=== PATIENT | female | born 1945 | race African-American/Black ===

== ENCOUNTER 2019-02-23 07:18 | Day surgery (SDC) | payer BC ==
[2019-02-23] VITALS (9 sets, daily range): BP systolic 120–149; BP diastolic 60–80
[~2019-02-23] VITALS: Ht 157.5 cm; Wt 68.0 kg
--- NOTE | 2019-02-23 07:26 | Pre-Procedure Note/Attestation ---
Pre-Procedure Note/Attestation Complete Prior to Procedure Planned Procedure: not applicable Procedure Narrative: High resolution anoscopy with biopsies Indications for Procedure Pre-Operative Diagnosis: rectal mass Attestation I attest that I discussed the nature of the procedure; its benefits; risks and complications; and alternatives (and the risks and benefits of such alternatives ), prior to the procedure, with the patient (or the patient's legal loss prevention representative). I attest that, if there was a reasonable possibility of needing a blood transfusion, the patient (or the patient's legal loss prevention representative) was given the [facility] standardized written summary, pursuant to the [place]ty [place] Blood Safety Act ([place] Health and Safety Code # 1645, as amended). I attest that I re-evaluated the patient just prior to the surgery and that there has been no change in the patient's H&P, except as documented below: Ciara Howard MD Feb 23, 2019 07:26
[2019-02-23] MEDS ORDERED: VITAMIN D400 INTLU ORAL (07:58)
[2019-02-23] MEDS ORDERED: ASPIR 8181 MG ORAL (07:58)
[2019-02-23] MEDS ORDERED: BENICAR HCT 401 EAC1 ORAL (07:58)
[2019-02-23] MEDS ORDERED: CARDIZEM CD240 MG ORAL (07:58)
[2019-02-23] MEDS ORDERED: ATORVASTATIN CA20 MG ORAL (07:58)
[2019-02-23] MEDS ORDERED: BUPRENORPHINE HC8 MG SL (07:58)
[2019-02-23] MEDS ORDERED: fentaNYL 100 mcg/2 mL IV ONE (08:13)
[2019-02-23] MEDS ORDERED: Midazolam 2mg/2ml Inj ONE ×2 (08:13→09:43)
[2019-02-23] MEDS ORDERED: Acetic Acid 3% Solution 15ml TOPIC ONE (08:15)
[2019-02-23] MEDS ORDERED: Ropivacaine 5mg/ml Vial 30ml INJ ONE (08:19)
[2019-02-23] MEDS ORDERED: EPINEPHrine 1mg/1ml Amp ONE (08:19)
[2019-02-23] MEDS ORDERED: Dexamethasone 4mg/ml vial ONE (08:19)
[2019-02-23] MEDS ORDERED: Bupivacaine 0.25% Inj 30ml INJ ONE (08:19)
[2019-02-23] MEDS ORDERED: Propofol 200mg/20ml IV ONE (08:20)
[2019-02-23] MEDS ORDERED: Lidocaine 1% MPF 10mg/ml 5ml ONE (08:20)
[2019-02-23] MEDS ORDERED: cefOXitin 1gm Inj ONE (08:25)
[2019-02-23] MEDS ORDERED: Sterile Water Irrig 1000ml IRRIG ONE (08:30)
[2019-02-23] MEDS ORDERED: LR 1000ml ONE (08:30)
[2019-02-23] MEDS ORDERED: NS Irrig 1000ml ONE (08:30)
[2019-02-23] MEDS ORDERED: NS Irrig 1000ml IRRIG ONE (08:43)
[2019-02-23] MEDS ORDERED: LR 1000ml 1,000 ML IVLG SCH (09:10)
--- NOTE | 2019-02-23 09:10 | Anethesia Preoperative Eval ---
Anesthesia Pre-op PMH/ROS General Date of Evaluation: Feb 23, 2019 Time of Evaluation: 08:32 Anesthesiologist: Elo ASA Score: ASA 3 Mallampati Score Class I : Soft palate, uvula, fauces, pillars visible Class II: Soft palate, uvula, fauces visible Class III: Soft palate, base of uvula visible Class IV: Only hard plate visible Mallampati Classification: Class II Surgeon: Jeannette Diagnosis: Anal condilomas Surgical Procedure: Excision of anal condilomas Anesthesia History: none Family History: no anesthesia problems Allergies: Coded Allergies: No Known Allergies (Unverified , 02/23/19) Medications: see eMAR Patient NPO?: Yes Past Medical History Cardiovascular: Reports: HTN; Denies: CAD, [place], valve dz, arrhythmia, other Pulmonary: Denies: asthma, COPD, WILLIAM, other Gastrointestinal/Genitourinary: Reports: GERD, CRI; Denies: ESRD, other Neurologic/Psychiatric: Reports: depression/anxiety, other - chronic pain; Denies: dementia, CVA, TIA Endocrine: Denies: DM, hypothyroidism, steroids, other HEENT: Denies: cataract (L), cataract (R), glaucoma, [place] (L), [place] (R), other Hematology/Immune: Reports: anemia - mild; Denies: DVT, bleeding disorder, other Musculoskeletal/Integumentary: Reports: DJD; Denies: OA, RA, DDD, edema, other PMH Narrative: as above PSxH Narrative: Hysterectomy, colonoscopies Anesthesia Pre-op Phys. Exam Physician Exam Last Vital Signs Date Time Temp Pulse Resp B/P (MAP) Pulse Ox O2 Delivery O2 Flow Rate FiO2 02/23/19 07:44 97.3 81 18 149/80 98 Room Air Constitutional: NAD Neurologic: CN 2-12 intact Cardiovascular: no M/R/G Respiratory: CTA Gastrointestinal: S/NT/ND Airway Exam Mallampati Score: Class II MO: limited Neck: stiff ROM: limited Teeth: missing Dentures: no upper, no lower Anesthesia Pre-op A/P Labs see chart Studies Pre-op Studies: EKG - SR Risk Assessment & Plan Assessment: ASA 3 Plan: MAC Status Change Before Surgery: No Pre-Antibiotics Drug: Cefoxitin 1gr. Given Within 1 Hr of Incision: Yes Time Given: 08:55 Diomedes Gasca MD Feb 23, 2019 09:10
[2019-02-23] MEDS ORDERED: DiphenhydrAMINE 50mg/ml Inj IVP PRN (09:15)
[2019-02-23] MEDS ORDERED: Hydromorphone 0.5mg/0.5ml inj IVP PRN (09:15)
--- NOTE | 2019-02-23 09:33 | Brief Operative Note ---
Immediate Post Operative Note Operative Note Pre-op Diagnosis: rectal mass Procedure: High-resolution anoscopy with biopsies Post-op Diagnosis: anorectal mass Post-op Diagnosis: same as pre-op Findings: consistent w/pre-op dx studies Surgeon: Ciara Howard MD Anesthesiologist: Diomedes King MD Anesthesia: moderate sedation Specimen: yes Complications: none Condition: stable Fluids: see anesthesia record Estimated Blood Loss: minimal Drains: none Packing: [email or web address] Implant(s) used?: No Ciara Howard MD Feb 23, 2019 09:33
--- NOTE | 2019-02-23 09:40 | Immediate Post-Op Evaluation ---
Immediate Post-Op Evalulation Immediate Post-Op Evalulation Procedure: Excision of anal condilomas Date of Evaluation: Feb 23, 2019 Time of Evaluation: 09:38 IV Fluids: 600 Blood Products: none Estimated Blood Loss: 50 Urinary Output: none Blood Pressure Systolic: 133 Blood Pressure Diastolic: 67 Pulse Rate: 82 Respiratory Rate: 22 O2 Sat by Pulse Oximetry: 99 Temperature (Fahrenheit): 97.4 Pain Score (1-10): 1 Nausea: No Vomiting: No Complications postoperative delirium, restless agitated, confused Patient Status: reacts, patent, none Hydration Status: adequate Diomedes Gasca MD Feb 23, 2019 09:40
[2019-02-23] MEDS ORDERED: Midazolam 2mg/2ml Inj IVP ONE ×2 (10:15→10:30)
--- NOTE | 2019-02-23 11:04 | 48 Hour Post Anesthesia Eval ---
Post Anesthesia Evaluation Procedure: Excision of anal condilomas Date of Evaluation: Feb 23, 2019 Time of Evaluation: 11:01 Blood Pressure Systolic: 116 0: 77 Pulse Rate: 68 Respiratory Rate: 20 Temperature (Fahrenheit): 97.5 O2 Sat by Pulse Oximetry: 98 Airway: patent Nausea: No Vomiting: No Pain Intensity: 2 Hydration Status: adequate Cardiopulmonary Status: stable Mental Status/LOC: patient returned to baseline Follow-up Care/Observations: n/a Post-Anesthesia Complications: patient calms down and goes to sleep after 2-nd dose of i/v midazolam wakes after about 45' quiet follows commands alert oriented ready to be discharged. Follow-up care needed: ready to discharge Diomedes Gasca MD Feb 23, 2019 11:04
--- NOTE | 2019-02-23 19:00 | Operative Note - Dictated ---
DATE OF OPERATION: 02/23/2019 PREOPERATIVE DIAGNOSIS: Anorectal mass. POSTOPERATIVE DIAGNOSIS: Anorectal mass. PROCEDURE: High-resolution anoscopy with biopsies. SURGEON: Ciara Howard M.D. ANESTHESIOLOGIST: Diomedes Gasca M.D. ANESTHESIA: Propofol sedation with local anesthetic. INDICATION FOR PROCEDURE: The patient is a 73-year-old female who was sent to my office by her reinforcing bar setter, Dr. Donta Goetz, for colorectal surgical evaluation of anorectal lesion. The patient had a colonoscopy done by Dr. 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 The patient had a previous rectal tubulovillous adenoma removed in 2013 also at another hospital. The patient was seen by me in the office on 01/21/2019, complaining of bleeding for the past 5 years and weight loss of 5 pounds in the last year. She was found to have a circumferential friable lesion in the anal canal extending outside of the anal canal into the perianal region and the right lateral region. In light of the patient's findings, it was determined at this time to proceed with high-resolution anoscopy with biopsies. DESCRIPTION OF PROCEDURE: Upon consent of the patient, the patient was brought to the operating room and placed in the prone negar-knife position on the operating table. Once adequate sedation had been established with propofol drip, the patient's buttocks were prepped and draped in usual surgical fashion. A 26 mL of 0.5% ropivacaine with epinephrine mixed with 6 mg of dexamethasone was used as a perianal and pudendal block. A Hill-Comer retractor was placed in the anal canal. There was noted to be a friable lesion extending from the anal verge up to the dentate line. The lesion was friable. In the right lateral perianal region, the lesion extended and passed the anal verge into the perianal skin. From the dentate line to the perianal skin measured 3 cm in length. At the right lateral region, the area was firm as well as in the right anterior region. These were excised and sent off the field for specimens. Multiple biopsies were taken of the anorectal lesion and pathology was consulted to rule out carcinoma. The anal canal was then stained with 2% acetic acid as well. Electrofulguration was then performed to remove any remaining friable areas. The anal canal was then irrigated and hemostasis was confirmed. Surgicel was used to pack the area. Sterile dry dressing was used as an outer dressing. Sponge, needle, and instrument counts were correct at the end of the case. The patient was awakened from anesthesia and brought to postanesthesia recovery in stable condition. ESTIMATED BLOOD LOSS: 5 mL. DRAINS: None. SPECIMEN: Anal biopsies. COMPLICATION: None. Ciara Howard M.D. DR: SP JOB#: [id number] CC: Star Bowie M.D.
[2019-02-24] MEDS ORDERED: Midazolam 2mg/2ml Inj IVP ONE (09:00)
== END 2019-02-23 12:00 | disposition home or self-care (01) ==
LOC: SUR 07:18
DX: C21.0 Malignant neoplasm of anus, unspecified (principal); I12.9 Hypertensive chronic kidney disease with stage 1 through stage 4 chronic kidney disease, or unspecified chronic kidney disease; N18.9 Chronic kidney disease, unspecified; K21.9 Gastro-esophageal reflux disease without esophagitis; F32.9 Major depressive disorder, single episode, unspecified; F31.9 Bipolar disorder, unspecified; G89.29 Other chronic pain; M19.90 Unspecified osteoarthritis, unspecified site; Z90.710 Acquired absence of both cervix and uterus
CPT/HCPCS: 46607; J0171; J0694; J1100; J2250; J2704; J2795; J3010; 94003; 94150

== ENCOUNTER 2019-10-21 12:03 | Inpatient (IN) | payer BC, MEDICARE ==
[~2019-10-21] VITALS: Ht 157.5 cm; Wt 61.2 kg
[~2019-10-21 12:03] MED LIST: ASPIR 8181 MG ORAL; ATORVASTATIN CA20 MG ORAL; BENICAR HCT 401 EAC1 ORAL; BUPRENORPHINE HC8 MG SL; CARDIZEM CD240 MG ORAL; VITAMIN D400 INTLU ORAL
[2019-10-21 12:20] VITALS: BP 180/80
--- NOTE | 2019-10-21 12:20 | NUR ---
ED Nurse Note: pt walked in to ED by using cane with family member due to both hip pain that radiated to both lower legs since yesterday. no recent injury. per pt, she has sciatica. ambulatory with steady gait using cane. AAO x4. skin warm to touch. no open wound noted. respirations even and non-labored noted. will wait for the further order.
[2019-10-21] MEDS ORDERED: Ketorolac 30mg Inj IM ONE (12:45)
[2019-10-21] MEDS ORDERED: Ketorolac 30mg Inj ONE (13:00)
--- NOTE | 2019-10-21 13:36 | NUR ---
ED Nurse Note: US tech at the bed side
[2019-10-21 14:00] VITALS: BP 190/99
[2019-10-21] MEDS ORDERED: Morphine Sulfate 2mg/ml Inj(IV/IM USE ONLY) IVP ONE ×2 (14:30→18:30)
[2019-10-21 15:00] VITALS: BP 150/99
[2019-10-21] MEDS ORDERED: Morphine Sulfate 4mg/ml Inj (IV USE ONLY) ONE (15:13)
[2019-10-21] MEDS ORDERED: Morphine Sulfate 2mg/ml Inj(IV/IM USE ONLY) ONE ×2 (15:16→18:43)
[2019-10-21 15:20] LABS: BASOPHILS % (AUTO) 0.6 % (0.0-2.0); EOSINOPHILS % (AUTO) 0.5 % (0.0-3.0); HEMATOCRIT 30.6 % (37.0-47.0); HEMOGLOBIN 10.2 G/DL (12.0-16.0); MEAN CORPUSCULAR VOLUME 86 FL (80-99); MONOCYTES % (AUTO) 9.9 % (1.0-10.0); NEUTROPHILS % (AUTO) 64.1 % (45.0-75.0); PLATELET COUNT 195 K/UL (150-450); RED BLOOD COUNT 3.55 M/UL (4.20-5.40); RED CELL DISTRIBUTION WIDTH 10.1 % (11.6-14.8); WHITE BLOOD COUNT 3.7 K/UL (4.8-10.8)
[2019-10-21 15:43] LABS: ANION GAP 7 mmol/L (5-15); BLOOD UREA NITROGEN 20 mg/dL (7-18); CALCIUM 8.8 MG/DL (8.5-10.1); CARBON DIOXIDE 33 MMOL/L (21-32); CHLORIDE 102 MMOL/L (98-107); CREATININE 0.9 MG/DL (0.55-1.30); POTASSIUM 3.8 MMOL/L (3.5-5.1); SODIUM 142 MMOL/L (136-145)
[2019-10-21] MEDS ORDERED: Enoxaparin 60mg Inj SUBQ SCH (15:45)
[2019-10-21] MEDS ORDERED: Enoxaparin 80mg Inj SUBQ SCH (15:45)
[2019-10-21] MEDS ORDERED: Hyzaar 50-12.5mg tab ORAL ONE ×2 (15:45→16:22)
[2019-10-21 15:48] LABS: ALANINE AMINOTRANSFERASE 20 U/L (12-78); ALBUMIN 3.5 G/DL (3.4-5.0); ALBUMIN/GLOBULIN RATIO 0.8 (1.0-2.7); ALKALINE PHOSPHATASE 61 U/L (46-116); ASPARTATE AMINO TRANSFERASE 19 U/L (15-37); BILIRUBIN,TOTAL 0.4 MG/DL (0.2-1.0)
[2019-10-21] MEDS ORDERED: Enoxaparin 60mg Inj SUBQ ONE ×2 (15:56→16:00)
--- NOTE | 2019-10-21 16:29 | Emergency Room Report ---
History of Present Illness General Chief Complaint: Back Pain-No Injury Source: Patient Present Illness HPI 74-year-old female with history of chronic sciatic pain in the left side here complaining of worsening pain x1 week as well as left lower leg swelling x3 days. She reports that she is usually immobile due to hip pain, denies history of tobacco smoke, cancer, recent travel, recent surgery. Reports that she has history of hypertension and has not taken blood pressure medication today. Denies chest pain, shortness of breath, palpitation, headache and dizziness at this time. Patient is rating her pain 10 out of 10 with radiation to left lower extremity denying tingling and numbness at this time. No calf tenderness is noted upon palpation patient has good arterial pulses on both lower extremities Allergies: Coded Allergies: No Known Allergies (Unverified , 02/23/19) Patient History Past Medical History: see triage record Past Surgical History: unable to obtain Pertinent Family History: none Now: No Immunizations: UTD Reviewed Nursing Documentation: PMH: Agreed; PSxH: Agreed Nursing Documentation-PMH Hx Cardiac Problems: Yes Hx Hypertension: Yes Hx Cancer: No Hx Gastrointestinal Problems: No Hx Neurological Problems: No Review of Systems All Other Systems: negative except mentioned in HPI Physical Exam Vital Signs Date Time Temp Pulse Resp B/P (MAP) Pulse Ox O2 Delivery O2 Flow Rate FiO2 10/21/19 12:10 98.1 88 19 180/80 (113) 97 Room Air Sp02 EP Interpretation: reviewed, abnormal - high bp General Appearance: no apparent distress, alert, GCS 15, non-toxic Head: normocephalic, atraumatic Eyes: bilateral eye normal inspection, bilateral eye PERRL ENT: hearing grossly normal, normal pharynx, no angioedema, normal voice Neck: full range of motion, supple/symm/no masses Respiratory: chest non-tender, lungs clear, normal breath sounds, no rhonchi, no wheezing, speaking full sentences Cardiovascular #1: regular rate, rhythm, no edema, no murmur, normal capillary refill Cardiovascular #2: 2+ dorsalis pedis (R), 2+ dorsalis pedis (L) Gastrointestinal: normal bowel sounds, non tender, soft, non-distended, no guarding, no rebound Rectal: deferred Genitourinary: no CVA tenderness Musculoskeletal: back normal, normal range of motion, no calf tenderness, gait/ station normal, non-tender, swelling - left calf Neurologic: alert, motor strength/tone normal, oriented x3, sensory intact, responsive, speech normal Psychiatric: judgement/insight normal, memory normal, mood/affect normal, no suicidal/homicidal ideation Skin: no rash Lymphatic: no adenopathy Medical Decision Making PA Attestation Diagnosis and treatment plans were reviewed and discussed with my supervising physician Dr. Cotton Diagnostic Impression: Primary Impression: DVT (deep venous thrombosis) ER Course 74-year-old female with history of chronic sciatic pain in the left side here complaining of worsening pain x1 week as well as left lower leg swelling x3 days. She reports that she is usually immobile due to hip pain, denies history of tobacco smoke, cancer, recent travel, recent surgery. Reports that she has history of hypertension and has not taken blood pressure medication today. Denies chest pain, shortness of breath, palpitation, headache and dizziness at this time. Patient is rating her pain 10 out of 10 with radiation to left lower extremity denying tingling and numbness at this time. No calf tenderness is noted upon palpation patient has good arterial pulses on both lower extremities Ddx considered but are not limited to : Cellulitis, DVT, PE, sciatic pain Vital signs: are WNL, pt. is afebrile H&PE are most consistent with: DVT left lower extremity ORDERS: CBC, CMP, UA, coagulation studies, ED INTERVENTIONS: Losartan hydrochlorothiazide, Lovenox, morphine, Zofran Patient was admited with diagnosis of DVT to Dr. Fabian under supervision of : Yury pt stable at time of admission EKG Diagnostic Results Rate: tachycardiac ST Segments: no acute changes Other Impression no acute st changes CT/MRI/US Diagnostic Results CT/MRI/US Diagnostic Results : Imaging Test Ordered: venous duplex LLE Impression DVT Last Vital Signs Date Time Temp Pulse Resp B/P (MAP) Pulse Ox O2 Delivery O2 Flow Rate FiO2 10/21/19 16:23 178/81 10/21/19 12:20 98.1 88 19 97 Room Air Disposition: ADMITTED INPATIENT Condition: Stable Referrals: NON PHYSICIAN (PCP) Vonda Bonilla Oct 21, 2019 16:29
[2019-10-21 16:30] VITALS: BP 178/81
--- NOTE | 2019-10-21 17:25 | History and Physical ---
History of Present Illness General Date patient seen: Oct 21, 2019 Reason for Hospitalization: Back Pain Present Illness HPI 74-year-old female, poor historian, with history of chronic sciatica presented to the ER c/p worsening left back pain radiating to hip, back of left leg and lower down for 1 week. She noticed left lower extremity swelling 3 days ago. She sits around most of the day due to back and hip pain. Says her pcp Dr. Carey did not get any imagining of her back and sent her to PT. Reports PT told her to go to the hospital. She denies active tobacco use, etoh or illicit drug use. No recent travel or surgery. Works as an senior court office assistant. Last colonoscopy August last year per patient it was normal. Denies recent weight loss, chest pain, shortness of breath, palpitation, headache and dizziness, or loc. Her back pain is10 out of 10 with radiation to left lower extremity, no weakness, or loss of sensation. During exam patient got up from stretcher, shaking both legs constantly to relieve pain. she was instructed to lay down. asking for narcotics. Denied any calf pain. patient denies any bowel or bladder incontinence. PMH: HTN, HLD PSH: per chart, excision of anal condyloma Social history: denies toxic hobbits, works as an office manger Family history: Denies hx of cancer Allergies: Coded Allergies: No Known Allergies (Unverified , 02/23/19) Medication History Scheduled Aspirin* (Aspir 81*), 81 MG ORAL DAILY, (Reported) Atorvastatin Calcium* (Atorvastatin Calcium*), 20 MG ORAL BEDTIME, (Reported) Atorvastatin Calcium* (Atorvastatin Calcium*), 20 MG ORAL BEDTIME, (Reported) Buprenorphine Hcl (Buprenorphine Hcl), 8 MG SL BID, (Reported) Diltiazem Hcl* (Cardizem Cd*), 360 MG ORAL DAILY, (Reported) Fluticasone Propionate (Fluticasone Propionate), 1 APPLIC TOPIC TWICE A DAY, ( Reported) Gabapentin* (Gabapentin*), 300 MG ORAL BEDTIME, (Reported) Olmesartan/Hydrochlorothiazide 40-25MG (Benicar Hct 40-25 Mg Tablet), 1 TAB ORAL DAILY, (Reported) Olmesartan/Hydrochlorothiazide 40-25MG (Benicar Hct 40-25 Mg Tablet), 1 TAB ORAL DAILY, (Reported) Vitamin D (Vitamin D3), 5,000 UNITS ORAL DAILY, (Reported) Discontinued Medications Aspirin* (Aspir 81*), 81 MG ORAL DAILY, (Reported) Discontinued Reason: Therapy completed Buprenorphine Hcl (Buprenorphine Hcl), 8 MG SL DAILY, (Reported) Discontinued Reason: Therapy completed Diltiazem Hcl* (Cardizem Cd*), 360 MG ORAL DAILY, (Reported) Discontinued Reason: Therapy completed Patient History Healthcare decision maker Resuscitation status Advanced Directive on File Review of Systems Constitutional: Reports: see HPI Eye: Denies: no symptoms, see HPI, eye pain, blurred vision, tearing, double vision, nose pain, nose congestion, acuity changes, discharge, other ENT: Denies: no symptoms, see HPI, ear pain, ear discharge, nose pain, nose congestion, throat pain, throat swelling, mouth pain, hearing loss, nasal discharge, other Respiratory: Denies: no symptoms, see HPI, cough, orthopnea, shortness of breath, stridor, wheezing, [place]AR[place], sputum, other Cardiovascular: Denies: no symptoms, see HPI, chest pain, edema, palpitations, syncope, PND, other Gastrointestinal: Denies: no symptoms, see HPI, abdominal pain, constipation, diarrhea, nausea, vomiting, melena, hematemesis, other Genitourinary: Denies: no symptoms, see HPI, discharge, dysuria, frequency, hematuria, pain, retention, incontinence, urgency, vag bleed/dc, other Musculoskeletal: Denies: no symptoms, see HPI, back pain, gout, joint pain, joint swelling, muscle pain, muscle stiffness, other Skin: Denies: no symptoms, see HPI, rash, change in color, change in hair/nails , dryness, lesions, other Psychiatric: Denies: no symptoms, see HPI, prior hx, anxiety, depressed feelings, emotional problems, SI, HI, hallucinations, other Neurological: Denies: no symptoms, see HPI, headache, numbness, paresthesia, seizure, tingling, tremors, focal weakness, syncope, dizziness, other Endocrine: Denies: no symptoms, see HPI, excessive sweating, flushing, intolerance to temperature, increased thirst, increased urine, unexplained weight loss, other Hematologic/Lymphatic: Denies: no symptoms, see HPI, anemia, blood clots, easy bleeding, easy bruising, swollen glands, diathesis, other Physical Exam General Appearance: WD/WN, no apparent distress, alert Lines, tubes and drains: peripheral HEENT: normocephalic, atraumatic, anicteric, mucous membranes moist, PERRL, EOMI Neck: non-tender, supple Respiratory/Chest: chest wall non-tender, lungs clear, normal breath sounds, no respiratory distress, no accessory muscle use Breasts: other Cardiovascular/Chest: normal peripheral pulses, normal rate, regular rhythm Abdomen: normal bowel sounds, non tender, soft, no organomegaly Genitourinary/Rectal: other - refused rectal exam Extremities: normal range of motion, non-tender, other - left lower extremity edema Skin Exam: normal pigmentation, warm/dry 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, no motor/sensory deficits, alert, oriented x 3 Musculoskeletal: normal muscle bulk Last 24 Hour Vital Signs Date Time Temp Pulse Resp B/P (MAP) Pulse Ox O2 Delivery O2 Flow Rate FiO2 10/21/19 16:23 178/81 10/21/19 12:20 98.1 88 19 180/80 97 Room Air 10/21/19 12:10 98.1 88 180/80 (113) 97 Room Air Laboratory Tests Test 10/21/19 15:00 White Blood Count 3.7 K/UL (4.8-10.8) L Red Blood Count 3.55 M/UL (4.20-5.40) L Hemoglobin 10.2 G/DL (12.0-16.0) L Hematocrit 30.6 % (37.0-47.0) L Mean Corpuscular Volume 86 FL (80-99) Mean Corpuscular Hemoglobin 28.8 PG (27.0-31.0) Mean Corpuscular Hemoglobin Concent 33.4 G/DL (32.0-36.0) Red Cell Distribution Width 10.1 % (11.6-14.8) L Platelet Count 195 K/UL (150-450) Mean Platelet Volume 4.7 FL (6.5-10.1) L Neutrophils (%) (Auto) 64.1 % (45.0-75.0) Lymphocytes (%) (Auto) 25.0 % (20.0-45.0) Monocytes (%) (Auto) 9.9 % (1.0-10.0) Eosinophils (%) (Auto) 0.5 % (0.0-3.0) Basophils (%) (Auto) 0.6 % (0.0-2.0) Prothrombin Time 10.4 SEC (9.30-11.50) Prothromb Time International Ratio 1.0 (0.9-1.1) Activated Partial Thromboplast Time 33 SEC (23-33) D-Dimer 4.08 mg/L FEU (0.00-0.49) H Sodium Level 142 MMOL/L (136-145) Potassium Level 3.8 MMOL/L (3.5-5.1) Chloride Level 102 MMOL/L (98-107) Carbon Dioxide Level 33 MMOL/L (21-32) H Anion Gap 7 mmol/L (5-15) Blood Urea Nitrogen 20 mg/dL (7-18) H Creatinine 0.9 MG/DL (0.55-1.30) Estimat Glomerular Filtration Rate mL/min (>60) Glucose Level 97 MG/DL (74-106) Calcium Level 8.8 MG/DL (8.5-10.1) Total Bilirubin 0.4 MG/DL (0.2-1.0) Aspartate Amino Transf (AST/SGOT) 19 U/L (15-37) Alanine Aminotransferase (ALT/SGPT) 20 U/L (12-78) Alkaline Phosphatase 61 U/L (46-116) Troponin I 0.008 ng/mL (0.000-0.056) Pro-B-Type Natriuretic Peptide 468 pg/mL (0-125) H Total Protein 7.9 G/DL (6.4-8.2) Albumin 3.5 G/DL (3.4-5.0) Globulin 4.4 g/dL Albumin/Globulin Ratio 0.8 (1.0-2.7) L Height (Feet): 5 Height (Inches): 2.00 Weight (Pounds): 135 Objective Narrative EKG: sinus tach, no st-t- changes Assessment/Plan Problem List: (1) HTN (hypertension) ICD Codes: I10 - Essential (primary) hypertension SNOMED: 74636316 (2) DVT (deep venous thrombosis) ICD Codes: I82.409 - Acute embolism and thrombosis of unspecified deep veins of unspecified lower extremity SNOMED: 257209186 (3) Intractable back pain ICD Codes: M54.9 - Dorsalgia, unspecified SNOMED: 420752499 (4) Normocytic anemia ICD Codes: D64.9 - Anemia, unspecified SNOMED: 798622709 Status: stable Assessment/Plan: 74 year old female with immobility due to back pain, being admitted for left lower extremity DVT, no sob, hypotension, chest pain, hypoxia to suggest PE. -med surg -full dose lovenox 1mg/kg BID -Elevated BNP- heck 2D echocardiogram -Normocytic anemia and neutropenia: anemia work up, stool for occult blood, HIV testing, monitor wbc. -Low normal platelets- monitor -Age appropriate cancer screening -Will consider back imaging -pain control with Tylenol and IV Dilaudid -Resume home BP meds, Benicar and statin -GI ppx: ppi I spent 70 minutes on this encounter, > 50% spent on care coordination and counselling. Plan of care d/w pt and ED physician. time of this note may not reflect time of encounter. Dariel Mayberry M.D. Oct 21, 2019 17:25
[2019-10-21] MEDS ORDERED: HYDROmorphone 1mg/ml Carpuject IVP PRN (17:45)
[2019-10-21] MEDS ORDERED: Albuterol/Ipratropium 3ml neb HHN PRN (17:45)
[2019-10-21] MEDS ORDERED: LORazepam 1mg tab ORAL PRN (17:45)
--- NOTE | 2019-10-21 18:25 | NUR ---
ED Nurse Note: Rn attempt to give a reports.
[2019-10-21] MEDS ORDERED: Labetalol 5mg/ml 20ml vial IV ONE ×2 (18:30→18:43)
[2019-10-21 18:32] LABS: APPEARANCE,URINE SLIGHTLY CLOUDY; BILIRUBIN, URINE NEGATIVE (NEGATIVE); GLUCOSE, URINE (UA) NEGATIVE (NEGATIVE); KETONES,URINE 3+ (NEGATIVE); LEUKOCYTE ESTERASE ,URINE 1+ (NEGATIVE); NITRITE,URINE NEGATIVE (NEGATIVE); PH,URINE 5 (4.5-8.0); PROTEIN,URINE 2+ (NEGATIVE); UROBILINOGEN,URINE 1 MG/DL (0.0-1.0)
[2019-10-21 18:33] LABS: COLOR,URINE YELLOW
--- NOTE | 2019-10-21 18:45 | NUR ---
NURSE NOTES: received report from ER, DONNELL wilks. patient will be admitted to [facility]- under . patient admitted to ER d/t both hip pain radiated to legs.
[2019-10-21] MEDS ORDERED: FLUTICASONE PRO15 GM TOPIC (19:01)
[2019-10-21] MEDS ORDERED: CARDIZEM CD240 MG ORAL (19:01)
[2019-10-21] MEDS ORDERED: ATORVASTATIN CA20 MG ORAL (19:01)
[2019-10-21] MEDS ORDERED: ASPIR 8181 MG ORAL (19:01)
[2019-10-21] MEDS ORDERED: BUPRENORPHINE HC8 MG SL (19:01)
[2019-10-21] MEDS ORDERED: BENICAR HCT 401 EAC1 ORAL (19:01)
[2019-10-21] MEDS ORDERED: GABAPENTIN300 MG ORAL (19:01)
--- NOTE | 2019-10-21 19:02 | NUR ---
ED Nurse Note: Reports given to DONNELL Irby. bp went down to 166/72 mmHg with HR 81.
--- NOTE | 2019-10-21 19:31 | NUR ---
NURSE NOTES: HAND-OFF: Report given to DONNELL Lovett.
[2019-10-21 19:35] VITALS: BP 168/105
--- NOTE | 2019-10-21 19:52 | NUR ---
NURSE NOTES: Received patient awake ambulating in bed, c/o 9/10 pain at this time, re-educated patient on current pain medicine schedule, patient verbalized understanding. Called ER to report current BP of 168/105, still cleared to come up to med/surg unit. Bed low and locked, patient ambulatory with cane, non slip socks on.
[2019-10-21] MEDS ORDERED: HydrALAZINE 10mg Tab ORAL PRN (20:00)
[2019-10-21] MEDS ORDERED: Zolpidem 5mg tab ORAL PRN (21:00)
[2019-10-21] MEDS: Atorvastatin 20mg tab ORAL SCH (21:10)
[2019-10-22] VITALS: BP 201/105
[2019-10-22] MEDS ORDERED: HydrALAZINE 25mg tab ORAL PRN (01:30)
--- NOTE | 2019-10-22 01:32 | NUR ---
NURSE NOTES: Spoke with Dr Lynch (covering for Dr Pereira) regarding patient's elevated BP. MD ordered new BP medications, will carry out as ordered.
[2019-10-22 04:00] VITALS: BP 139/76
--- NOTE | 2019-10-22 07:01 | NUR ---
HAND-OFF: Report given to DONNELL Jo.
[2019-10-22 08:00] VITALS: BP 143/88
--- NOTE | 2019-10-22 08:06 | NUR ---
NURSE NOTES: Pt awake, A/O x 3, forgetful, complained back and LLE pain, LLE swelling noted, no redness, numbness present per pt, able to move the toes, no tingling. tolerating diet, no N/V. call light within reach, bed in low position, bed alarm on, fall precaution maintained. will continue to monitor.
[2019-10-22] MEDS: Vitamin D 1000 IU Tab ORAL SCH (09:42)
[2019-10-22] MEDS: Hyzaar 50-12.5mg tab ORAL SCH (09:43)
[2019-10-22 09:51] LABS: HEMOGLOBIN 9.7 G/DL (12.0-16.0); MEAN CORPUSCULAR VOLUME 88 FL (80-99); PLATELET COUNT 224 K/UL (150-450); RED CELL DISTRIBUTION WIDTH 11.7 % (11.6-14.8); WHITE BLOOD COUNT 2.4 K/UL (4.8-10.8)
[2019-10-22 10:00] LABS: % IRON SATURATION 23 % (15-50); IRON 43 ug/dL (50-175); TOTAL IRON BINDING CAPACITY 191 ug/dL (250-450)
[2019-10-22 10:14] LABS: ANION GAP 5 mmol/L (5-15); BLOOD UREA NITROGEN 17 mg/dL (7-18); CARBON DIOXIDE 31 MMOL/L (21-32); CHLORIDE 106 MMOL/L (98-107); CREATININE 0.8 MG/DL (0.55-1.30); FERRITIN 286 NG/ML (8-388); POTASSIUM 3.5 MMOL/L (3.5-5.1); SODIUM 142 MMOL/L (136-145)
[2019-10-22] MEDS: Enoxaparin 60mg Inj SUBQ SCH ×2 (10:29→20:02)
[2019-10-22 12:00] VITALS: BP 133/68
[2019-10-22 16:00] VITALS: BP 157/81
--- NOTE | 2019-10-22 16:45 | NUR ---
P.T Note: P.T evaluation completed and tx initiated. Please refer to P.T evaluation for current functional status.
--- NOTE | 2019-10-22 17:48 | General Progress Note ---
Assessment/Plan Status: stable Assessment/Plan: 74 year old female with immobility due to back pain, being admitted for left lower extremity DVT, no sob, hypotension, chest pain, hypoxia to suggest PE. #Acute DVT -cont lovenox 1mg/kg BID, anticipate change to NOAC tomorrow -TTE pending -Normocytic anemia and neutropenia: anemia work up, stool for occult blood, HIV testing, monitor wbc. -Low normal platelets- monitor -Age appropriate cancer screening -pain control with Tylenol and IV Dilaudid #essential HTN -cont home BP meds, Benicar and statin I spent 35 minutes on this patient's case, and >50% was dedicated to counseling and/or care coordination. I spent an additional 35 minutes on review of medical records including prior outside hospital records, consult notes, progress notes, procedures, imaging, labs, hemodynamics, and other clinical documentation. Subjective Date patient seen: Oct 22, 2019 Time patient seen: 16:45 ROS Limited/Unobtainable: No Constitutional: Denies: chills, fever Cardiovascular: Denies: chest pain Gastrointestinal/Abdominal: Denies: abdominal pain Neurologic/Psychiatric: Denies: anxiety Allergies: Coded Allergies: No Known Allergies (Unverified , 02/23/19) Subjective Follow up for acute LE DVT, pain improved, ambulating with walker. Tolerating Lovenox. Objective Last 24 Hour Vital Signs Date Time Temp Pulse Resp B/P (MAP) Pulse Ox O2 Delivery O2 Flow Rate FiO2 10/22/19 16:00 97.9 92 18 157/81 (106) 99 10/22/19 12:00 98.2 87 17 133/68 (89) 100 10/22/19 09:44 95 143/88 10/22/19 09:43 143/88 10/22/19 09:00 Room Air 10/22/19 08:00 97.9 95 18 143/88 (106) 100 10/22/19 04:02 97.0 10/22/19 04:00 97.8 100 20 139/76 (97) 96 10/22/19 01:59 201/105 10/22/19 00:00 97.0 86 20 201/105 (137) 10/21/19 23:55 168/105 10/21/19 22:28 Room Air 10/21/19 21:09 97.8 10/21/19 20:27 97.8 10/21/19 19:35 97.8 93 168/105 (126) 10/21/19 19:01 98.1 81 18 166/72 94 Room Air 10/21/19 18:45 97 178/99 Laboratory Tests 10/21/19 18:00: Urine Color Yellow, Urine Appearance Slightly cloudy, Urine pH 5, Urine Specific [place] 1.020, Urine Protein 2+H, Urine Glucose (UA) Negative, Urine Ketones 3+H, Urine Blood 2+H, Urine Nitrite Negative, Urine Bilirubin Negative, Urine Urobilinogen 1H, Urine Leukocyte Esterase 1+H, Urine RBC 2-4H, Urine WBC 10-15H, Urine Squamous Epithelial Cells ManyH, Urine Calcium Oxalate Crystals Few, Urine Bacteria ModerateH 10/22/19 08:52: White Blood Count 2.4L, Red Blood Count 3.40L, Hemoglobin 9.7L, Hematocrit 30.0L , Mean Corpuscular Volume 88, Mean Corpuscular Hemoglobin 28.4, Mean Corpuscular Hemoglobin Concent 32.2, Red Cell Distribution Width 11.7, Platelet Count 224, Mean Platelet Volume 5.7L, Neutrophils (%) (Auto) , Lymphocytes (%) ( Auto) , Monocytes (%) (Auto) , Eosinophils (%) (Auto) , Basophils (%) (Auto) , Differential Total Cells Counted 100, Neutrophils % (Manual) 68, Lymphocytes % ( Manual) 19L, Monocytes % (Manual) 12H, Eosinophils % (Manual) 0, Basophils % ( Manual) 1, Band Neutrophils 0, Platelet Estimate Adequate, Platelet Morphology Normal, Hypochromasia 1+, Sodium Level 142, Potassium Level 3.5, Chloride Level 106, Carbon Dioxide Level 31, Anion Gap 5, Blood Urea Nitrogen 17, Creatinine 0.8, Estimat Glomerular Filtration Rate , Glucose Level 107H, Calcium Level 9.0 , Iron Level 43L, Total Iron Binding Capacity 191L, Percent Iron Saturation 23, Unsaturated Iron Binding 148, Ferritin 286, HIV (1&2) Antibody Rapid Negative Height (Feet): 5 Height (Inches): 2.00 Weight (Pounds): 135 General Appearance: no apparent distress, alert Neck: normal alignment, supple Cardiovascular: normal rate, regular rhythm Respiratory/Chest: lungs clear, normal breath sounds, no respiratory distress Abdomen: normal bowel sounds, non tender, soft Extremities: calf tenderness, swelling Neurologic: alert, oriented x 3 Stuart Orourke MD Oct 22, 2019 17:48
--- NOTE | 2019-10-22 19:15 | NUR ---
HAND-OFF: Report given to Brigida JACOBO.
[2019-10-22 20:00] VITALS: BP 110/62
--- NOTE | 2019-10-22 20:00 | NUR ---
NURSE NOTES: received pt in bed. AAO X 4 in room air. no c/o pain. no acute distress noted this time. both lower extremities swelling (L>R) no redness, no pain. call light within reach. bed is the lowest position. will continue to provide plan of care.
[2019-10-22] MEDS: Atorvastatin 20mg tab ORAL SCH (20:01)
[2019-10-23] VITALS: BP 116/57
[2019-10-23 04:00] VITALS: BP 150/65
--- NOTE | 2019-10-23 07:31 | NUR ---
NURSE NOTES: Pt awake, A/O x 3-4, calm and cooperative, denies pain, LLE swollen, no redness, numbness present, no tingling, able to move toes. call light within reach, bed in low position, bed alarm on. fall precaution maintained. will continue to monitor.
--- NOTE | 2019-10-23 07:46 | NUR ---
HAND-OFF: Report given to Deysi JACOBO.
[2019-10-23 08:00] VITALS: BP 122/74
[2019-10-23] MEDS: Hyzaar 50-12.5mg tab ORAL SCH (08:21)
[2019-10-23] MEDS: Vitamin D 1000 IU Tab ORAL SCH (08:22)
[2019-10-23 10:00] LABS: HEMATOCRIT 27.2 % (37.0-47.0); HEMOGLOBIN 8.7 G/DL (12.0-16.0); MEAN CORPUSCULAR VOLUME 89 FL (80-99); PLATELET COUNT 217 K/UL (150-450); RED BLOOD COUNT 3.05 M/UL (4.20-5.40); RED CELL DISTRIBUTION WIDTH 11.7 % (11.6-14.8); WHITE BLOOD COUNT 3.1 K/UL (4.8-10.8)
[2019-10-23] MEDS: Enoxaparin 60mg Inj SUBQ SCH ×2 (10:04→20:21)
[2019-10-23 10:16] LABS: ANION GAP 4 mmol/L (5-15); BLOOD UREA NITROGEN 18 mg/dL (7-18); CALCIUM 8.1 MG/DL (8.5-10.1); CARBON DIOXIDE 33 MMOL/L (21-32); CHLORIDE 106 MMOL/L (98-107); CREATININE 0.8 MG/DL (0.55-1.30); POTASSIUM 3.9 MMOL/L (3.5-5.1); SODIUM 143 MMOL/L (136-145)
[2019-10-23 12:00] VITALS: BP 110/61
--- NOTE | 2019-10-23 12:23 | NUR ---
CASE MANAGEMENT: INITIAL REVIEW 74 YO F PRESENTED TO OUR ED FROM HOME CC: BACK PAIN PMHx: HTN. SI:R/O DVT T 98.1 HR 88 RR 19 B/P 180/80 SATS 97% ON RA LABS: WBC 3.7 CO2 33 BUN 20 UCx (+MIXED GRAM POS ORGANISM) IS: TORADOL IM X1 MORPHINE IV X1 ZOFRAN IV X1 NS BOLUS X1 PATIENT ADMITTED TO MED/SURG 10/21/2019 @ 1527 DCP: PATIENT TO BE DISCHARGED TO HOME ONCE MEDICALLY CLEARED. PLAN OF CARE: 2D ECHO PT EVAL 10/22/2019 SI:R/O DVT T 98.2 HR 88 RR 19 B/P 110/62 SATS 96% ON RA LABS: WBC 2.4 GLU 107 IS: LIPITOR PO QHS PROTONIX PO QD HCTZ/LOSARTAN PO QD NORVASC PO QD MED/SURG DCP: PATIENT TO BE DISCHARGED TO HOME ONCE MEDICALLY CLEARED. PLAN OF CARE: 2D ECHO >> EF 60-65% PT EVAL 10/23/2019 SI:R/O DVT T 98.6 HR 90 RR 18 B/P 122/74 SATS 95% ON RA LABS: WBC 3.1 CO2 33 CA 8.1 IS: LIPITOR PO QHS PROTONIX PO QD HCTZ/LOSARTAN PO QD NORVASC PO QD MED/SURG DCP: PATIENT TO BE DISCHARGED TO HOME ONCE MEDICALLY CLEARED. Addendum: 10/23/19 at 1428 by Sylvie Jackson CM [facility]
--- NOTE | 2019-10-23 12:45 | General Progress Note ---
Assessment/Plan Status: stable Assessment/Plan: 74 year old female with immobility due to back pain, being admitted for left lower extremity DVT, no sob, hypotension, chest pain, hypoxia to suggest PE. #LLE Acute DVT -cont lovenox 1mg/kg BID, need to verify Xarelto or Eliquis coverage prior to discharge -TTE results pending -Normocytic anemia and neutropeni: anemia work up, stool for occult blood, HIV testing, monitor wbc. -Low normal platelets- monitor -Age appropriate cancer screening as outpatient -Change IV Dilaudid to oral oxycodone #essential HTN -cont home BP meds, Benicar and statin I spent 35 minutes on this patient's case, and >50% was dedicated to counseling and/or care coordination. Subjective Date patient seen: Oct 23, 2019 Time patient seen: 11:55 ROS Limited/Unobtainable: No Constitutional: Denies: fever Cardiovascular: Denies: chest pain Respiratory: Denies: cough Gastrointestinal/Abdominal: Denies: abdominal pain Neurologic/Psychiatric: Denies: anxiety Allergies: Coded Allergies: No Known Allergies (Unverified , 02/23/19) Subjective Follow up for acute LE DVT, pain improved, ambulating with walker and physical therapist. Tolerating Lovenox. Pharmacy unable to verify coverage for DOAC Objective Last 24 Hour Vital Signs Date Time Temp Pulse Resp B/P (MAP) Pulse Ox O2 Delivery O2 Flow Rate FiO2 10/23/19 12:00 98.8 93 20 110/61 (77) 96 10/23/19 09:00 Room Air 10/23/19 08:21 90 122/74 10/23/19 08:21 122/74 10/23/19 08:00 98.6 90 18 122/74 (90) 95 10/23/19 04:00 98.3 85 19 150/65 (93) 96 10/23/19 00:00 97.8 86 19 116/57 (76) 95 10/22/19 21:44 Room Air 10/22/19 20:00 98.2 88 19 110/62 (78) 96 10/22/19 20:00 88 18 96 Room Air 21 10/22/19 16:00 97.9 92 18 157/81 (106) 99 Intake and Output 10/22/19 10/23/19 19:00 07:00 Intake Total 360 ml 360 ml Balance 360 ml 360 ml Intake Oral 360 ml 360 ml # Voids 3 4 Laboratory Tests 10/23/19 09:15: White Blood Count 3.1L, Red Blood Count 3.05L, Hemoglobin 8.7L, Hematocrit 27.2L , Mean Corpuscular Volume 89, Mean Corpuscular Hemoglobin 28.7, Mean Corpuscular Hemoglobin Concent 32.2, Red Cell Distribution Width 11.7, Platelet Count 217, Mean Platelet Volume 4.9L, Neutrophils (%) (Auto) , Lymphocytes (%) ( Auto) , Monocytes (%) (Auto) , Eosinophils (%) (Auto) , Basophils (%) (Auto) , Differential Total Cells Counted 100, Neutrophils % (Manual) 63, Lymphocytes % ( Manual) 25, Monocytes % (Manual) 11H, Eosinophils % (Manual) 1, Basophils % ( Manual) 0, Band Neutrophils 0, Platelet Estimate Adequate, Platelet Morphology Normal, Hypochromasia 1+, Sodium Level 143, Potassium Level 3.9, Chloride Level 106, Carbon Dioxide Level 33H, Anion Gap 4L, Blood Urea Nitrogen 18, Creatinine 0.8, Estimat Glomerular Filtration Rate , Glucose Level 90, Calcium Level 8.1L Height (Feet): 5 Height (Inches): 2.00 Weight (Pounds): 135 General Appearance: no apparent distress, alert Neck: normal alignment, supple Cardiovascular: normal rate, regular rhythm Respiratory/Chest: lungs clear, normal breath sounds Abdomen: non tender, soft, no mass Extremities: non-tender, calf tenderness, swelling tSuart Orourke MD Oct 23, 2019 12:45
[2019-10-23 16:00] VITALS: BP 116/59
[2019-10-23 20:00] VITALS: BP 106/60
[2019-10-23] MEDS: Atorvastatin 20mg tab ORAL SCH (20:19)
[2019-10-23] MEDS: oxyCODONE 5mg IR tab ORAL PRN (20:19)
--- NOTE | 2019-10-23 21:00 | NUR ---
NURSE NOTES: received pt in bed. AAO X 4 in room air. no c/o pain. both lower extremities swelling (L>R) no redness, no pain. no acute distress noted this time. call light within reach. bed is the lowest position. will continue to provide plan of care.
[2019-10-24] VITALS: BP 106/76
[2019-10-24 04:00] VITALS: BP 126/67
[2019-10-24] MEDS: oxyCODONE 5mg IR tab ORAL PRN ×2 (04:30→10:59)
--- NOTE | 2019-10-24 07:35 | NUR ---
HAND-OFF: Report given to Yessy JACOBO.
--- NOTE | 2019-10-24 07:36 | NUR ---
NURSE NOTES: Received patient in bed awake. IV line intact. No SOB or acute distress. HOB elevated. Bed locked in lowest position. Call light within reach. Will continue plan of care.
[2019-10-24 08:00] VITALS: BP 126/57
--- NOTE | 2019-10-24 08:56 | Diagnostic Imaging Report ---
Indication: Left lower extremity pain and swelling. Technique: Duplex Doppler imaging performed from the left common femoral vein to the popliteal vein. FINDINGS: Normal compressibility demonstrated from the common femoral vein to the popliteal vein. Respiratory phasicity and good augmentation demonstrated on waveform analysis. There is no evidence of thrombosis. There is thrombus within the left posterior tibial vein and peroneal vein. IMPRESSION: Acute thrombus in the left peroneal and posterior tibial veins below the knee. No evidence of deep venous thrombosis from the left popliteal vein through the common femoral vein.
--- NOTE | 2019-10-24 09:00 | NUR ---
NURSE NOTES: IV line out. RN removed IV, tolerated well. No s/s of infection.
[2019-10-24] MEDS: Vitamin D 1000 IU Tab ORAL SCH (09:19)
[2019-10-24] MEDS: Hyzaar 50-12.5mg tab ORAL SCH (09:19)
--- NOTE | 2019-10-24 09:20 | General Progress Note ---
Assessment/Plan Problem List: (1) HTN (hypertension) ICD Codes: I10 - Essential (primary) hypertension SNOMED: 99403723 (2) DVT (deep venous thrombosis) ICD Codes: I82.409 - Acute embolism and thrombosis of unspecified deep veins of unspecified lower extremity SNOMED: 580910220 (3) Intractable back pain ICD Codes: M54.9 - Dorsalgia, unspecified SNOMED: 563705899 (4) Normocytic anemia ICD Codes: D64.9 - Anemia, unspecified SNOMED: 237010352 Status: stable Assessment/Plan: 74 year old female with immobility due to back pain, being admitted for left lower extremity DVT, no sob, hypotension, chest pain, hypoxia to suggest PE. #LLE Acute DVT -cont lovenox 1mg/kg BID, need to verify Xarelto or Eliquis coverage prior to discharge -TTE results pending -Normocytic anemia and neutropenia: anemia work up, stool for occult blood, HIV testing--> negative , monitor wbc. -Low normal platelets- monitor -Age appropriate cancer screening as outpatient -Change IV Dilaudid to oral oxycodone #essential HTN -cont home BP meds, Benicar and statin I spent 35 minutes on this patient's case, and >50% was dedicated to counseling and/or care coordination. time of this note may not reflect time of encounter. Subjective Date patient seen: Oct 24, 2019 ROS Limited/Unobtainable: No Constitutional: Denies: no symptoms, chills, diaphoresis, fever, malaise, weakness, other HEENT: Denies: no symptoms, eye pain, blurred vision, tearing, double vision, ear pain, ear discharge, nose pain, nose congestion, throat pain, throat swelling, mouth pain, mouth swelling, other Cardiovascular: Denies: no symptoms, chest pain, edema, irregular heart rate, lightheadedness, palpitations, syncope, other Respiratory: Denies: no symptoms, cough, orthopnea, shortness of breath, SOB with excertion, SOB at rest, sputum, stridor, wheezing, other Gastrointestinal/Abdominal: Denies: no symptoms, abdomen distended, abdominal pain, black stools, tarry stools, blood in stool, constipated, diarrhea, difficulty swallowing, nausea, poor appetite, poor fluid intake, rectal bleeding , vomiting, other Genitourinary: Denies: no symptoms, burning, discharge, frequency, flank pain, hematuria, incontinence, pain, urgency, other Neurologic/Psychiatric: Denies: no symptoms, anxiety, depressed, emotional problems, headache, numbness, paresthesia, pre-existing deficit, seizure, tingling, tremors, weakness, other Endocrine: Denies: no symptoms, excessive sweating, flushing, intolerance to cold, intolerance to heat, increased hunger, increased thirst, increased urine, unexplained weight gain, unexplained weight loss, other Allergies: Coded Allergies: No Known Allergies (Unverified , 02/23/19) Subjective seen and examined. no acute events. curious about discharge. CM trying to verify coverage for DOAC Objective Last 24 Hour Vital Signs Date Time Temp Pulse Resp B/P (MAP) Pulse Ox O2 Delivery O2 Flow Rate FiO2 10/24/19 08:00 99.5 92 18 126/57 (80) 93 10/24/19 06:58 87 18 98 Room Air 21 10/24/19 04:00 98.6 78 20 126/67 (86) 98 10/24/19 00:00 98.6 88 20 106/76 (86) 100 10/23/19 21:00 Room Air 10/23/19 20:00 98.6 89 20 106/60 (75) 98 10/23/19 19:54 90 18 98 Room Air 21 10/23/19 16:00 98.9 89 18 116/59 (78) 98 10/23/19 12:00 98.8 93 20 110/61 (77) 96 Intake and Output 10/23/19 10/24/19 18:59 06:59 Intake Total 720 ml 100 ml Balance 720 ml 100 ml Intake Oral 720 ml Other 100 ml # Voids 3 1 Height (Feet): 5 Height (Inches): 2.00 Weight (Pounds): 135 Objective General Appearance: no apparent distress, alert Neck: normal alignment, supple Cardiovascular: normal rate, regular rhythm Respiratory/Chest: lungs clear, normal breath sounds Abdomen: non tender, soft, no mass Extremities: non-tender, calf tenderness, swelling Dariel Mayberry M.D. Oct 24, 2019 09:19
[2019-10-24] MEDS: Enoxaparin 60mg Inj SUBQ SCH ×2 (09:21→20:06)
--- NOTE | 2019-10-24 10:29 | NUR ---
*-* NO INSURANCE INFORMATION IN THE BAR UNABLE TO SEND CLINICALS OR REVIEWS *-*
--- NOTE | 2019-10-24 11:00 | NUR ---
NURSE NOTES: Seen by Dr Mayberry, aware that patient has no IV site. No orders to reinsert as per Dr Mayberry. Awaiting insurance to cover DVT medication for discharge.
[2019-10-24 12:00] VITALS: BP 121/66
--- NOTE | 2019-10-24 12:40 | Cardiology Report ---
APPROVED REPORT EXAM: Two-dimensional and M-mode echocardiogram. INDICATION Hypertension M-Mode DIMENSIONS IVSd1.2 (0.7-1.1cm)Left Atrium (MM)4.1 (1.6-4.0cm) LVDd4.6 (3.5-5.6cm)Aortic Root2.3 (2.0-3.7cm) PWd1.0 (0.7-1.1cm)Aortic Cusp Exc.1.7 (1.5-2.0cm) IVSs1.4 cm LVDs2.4 (2.5-4.0cm) PWs1.4 cm Normal left ventricular chamber size, systolic function and wall motion . Left ventricular ejection fraction estimated to be 60-65 %. No evidence of left ventricular hypertrophy. No evidence of pericardial effusion. All other cardiac chamber sizes are within normal limits. Focal aortic valve sclerosis with adequate cusp excursion. Moderately Thickened mitral valve leaflets with normal excursion. White echogenic material noted on posterior mitral valve leaflet. Moderately Mitral annulus and aortic root calcification. Pulmonic valve not well visualized. Normal tricuspid valve structure. IVC at normal size with physiologic collapse. A color flow and spectral Doppler study was performed and revealed: No aortic regurgitation. Trace mitral regurgitation. Mitral diastolic velocities suggest reduced left ventricular relaxation c/w mild LV diastolic dysfunction (Grade I ). Mild tricuspid regurgitation. Tricuspid systolic velocities suggests peak right ventricular systolic pressure of 37 mmHg,consistent with mild pulmonary hypertension. Trace Pulmonic regurgitation present.
[2019-10-24 16:00] VITALS: BP 116/67
--- NOTE | 2019-10-24 19:15 | NUR ---
HAND-OFF: Report given to Daisy.
--- NOTE | 2019-10-24 19:31 | Cardiology Report ---
APPROVED REPORT EKG Measurement Heart [id number] Normal sinus rhythm Normal ECG
--- NOTE | 2019-10-24 19:37 | NUR ---
NURSE NOTES: Received patient in bed, awake, alert, oriented, no acute distress noted, no IV access, MD is aware. Call light is within reach, bed is in low position, locked and alarm is on, will continue to monitor for comfort and safety.
[2019-10-24 20:00] VITALS: BP 126/70
[2019-10-24] MEDS: Atorvastatin 20mg tab ORAL SCH (20:04)
[2019-10-25 00:05] VITALS: BP 124/66
[2019-10-25 04:00] VITALS: BP 133/72
--- NOTE | 2019-10-25 07:03 | NUR ---
HAND-OFF: Report given to Yessy JACOBO.
--- NOTE | 2019-10-25 07:35 | NUR ---
NURSE NOTES: Received patient awake. No SOB or acute distress. In a very pleasant disposition. HOB elevated. Bed locked in lowest position. Call light within reach. Will continue plan of care. Awaiting insurance coverage for home medication upon discharge.
[2019-10-25 08:00] VITALS: BP 103/64
[2019-10-25] MEDS: Vitamin D 1000 IU Tab ORAL SCH (08:16)
[2019-10-25] MEDS: oxyCODONE 5mg IR tab ORAL PRN (08:17)
[2019-10-25] MEDS: Enoxaparin 60mg Inj SUBQ SCH (08:18)
[2019-10-25] MEDS: Hyzaar 50-12.5mg tab ORAL SCH (09:00)
[2019-10-25 12:00] VITALS: BP 140/57
[2019-10-25] MEDS ORDERED: ELIQUIS5 MG PO (15:32)
--- NOTE | 2019-10-25 15:41 | Discharge Summary ---
Discharge Summary Hospital Course Date of Admission Oct 21, 2019 at 15:27 Date of Discharge 10/25/19 Admitting Diagnosis R/O DVT HPI Cortney Stack is a 74 year old female who was admitted on Oct 21, 2019 at 15:27 for Rule Out Deep Vein Thrombosis Procedures echo, vascular duplex lower extremity Hospital Course 74 year old female with immobility due to back pain, being admitted for left lower extremity DVT, no sob, hypotension, chest pain, hypoxia to suggest PE. #LLE Acute DVT -cont lovenox 1mg/kg BID, Will change to Eliquis, verified by pharmacy and approved -Normocytic anemia and neutropenia: anemia work up, mild iron deficiency - stool for occult blood -HIV testing--> negative -Low normal platelets- monitor -Age appropriate cancer screening as outpatient -Change IV Dilaudid to oral oxycodone #essential HTN -cont home BP meds, Benicar and statin I spent 35 minutes on this patient's case, and >50% was dedicated to counseling and/or care coordination. time of this note may not reflect time of encounter. Discharge Medications New Medications: Apixaban (Eliquis) 5 Mg Tablet 5 MG PO EVERY 12 HOURS for 30 Days, #60 TAB Continued Medications: Aspirin* (Aspir 81*) 81 Mg Tablet.dr 81 MG ORAL DAILY, TAB Atorvastatin Calcium* (Atorvastatin Calcium*) 20 Mg Tablet 20 MG ORAL BEDTIME, TAB Buprenorphine Hcl (Buprenorphine Hcl) 8 Mg Tab.subl 8 MG SL BID, TAB Diltiazem Hcl* (Cardizem Cd*) 240 Mg Cap.er.24h 360 MG ORAL DAILY, #30 CAP 0 Refills Fluticasone Propionate (Fluticasone Propionate) 15 Gm Oint...g. 1 APPLIC TOPIC TWICE A DAY, GM Gabapentin* (Gabapentin*) 300 Mg Capsule 300 MG ORAL BEDTIME, CAP Olmesartan/Hydrochlorothiazide 40-25MG (Benicar Hct 40-25 Mg Tablet) 1 Each Tablet 1 TAB ORAL DAILY, TAB Olmesartan/Hydrochlorothiazide 40-25MG (Benicar Hct 40-25 Mg Tablet) 1 Each Tablet 1 TAB ORAL DAILY, TAB Vitamin D (Vitamin D3) 400 Unit Tablet 5000 UNITS ORAL DAILY, TAB Discontinued Medications: Atorvastatin Calcium* (Atorvastatin Calcium*) 20 Mg Tablet 20 MG ORAL BEDTIME, TAB Discharge Condition Upon Discharge: stable Discharge Disposition Patient was discharged to home Discharge Diagnoses: (1) DVT (deep venous thrombosis) (2) HTN (hypertension) (3) Intractable back pain (4) Normocytic anemia Dariel Mayberry M.D. Oct 25, 2019 15:41
[2019-10-25 16:00] VITALS: BP 144/70
--- NOTE | 2019-10-25 19:15 | NUR ---
NURSE NOTES: Patient discharged to home accompanied by significant other. No new skin issues noted. Belongings accounted for. Discharge instructions given. ID band removed. Wheeled to lobby by GEAR INSPECTOR.
--- NOTE | 2019-10-25 19:17 | NUR ---
NURSE NOTES: Received report/update from Yessy RN, patient is being discharged to go home, patient is stable with no distress noted.
== END 2019-10-25 19:15 | disposition home or self-care (01) | DRG 301 ==
LOC: EMR 12:30 → 4E 15:27 → EDBEDREQ 17:52 → 4E 10-22 01:48
DX: I82.402 Acute embolism and thrombosis of unspecified deep veins of left lower extremity (principal); I10 Essential (primary) hypertension; Z79.82 Long term (current) use of aspirin; M54.9 Dorsalgia, unspecified; D64.9 Anemia, unspecified
CPT/HCPCS: 36415; 80048; 80053; 81003; 82728; 83540; 83550; 83880; 84484; 85007; 85025; 85379; 85610; 85730; 86703; 86850; 86900; 86901; 87086; 93005; 93306; 93971; 94664; 96361; 96372; 96374; 96375; 99285; J2405; J7030

== ENCOUNTER 2020-05-05 15:25 | Emergency (ER) | payer OTHER ==
[~2020-05-05] VITALS: Ht 157.5 cm; Wt 58.5 kg
[~2020-05-05 15:25] MED LIST changes: +ELIQUIS5 MG PO; +FLUTICASONE PRO15 GM TOPIC; +GABAPENTIN100 MG ORAL; +GABAPENTIN300 MG ORAL
--- NOTE | 2020-05-05 15:53 | Emergency Room Report ---
History of Present Illness General Chief Complaint: General Complaint Source: Medical Record Present Illness HPI * 74 YO w. hx of Left DVT dx 1 week ago, on Eliquis. worsening of LLE swelling, and new onset swelling of the RLE. Pt. also has hx of rectal cancer. She was at follow up today and oncologist refered pt. to ED for DVT eval. Pt. denies pain or tenderness. Pt. denies CP, palpitations or SOB. PT. reports hx of HTn as well. Denies cardiac hx. meds do however include diltiazem. Allergies: Coded Allergies: No Known Allergies (Unverified , 02/23/19) COVID-19 Screening Contact w/high risk pt: No Recent Travel to affected area: No Experienced COVID-19 symptoms?: No COVID-19 Testing performed SUBSTANCE ABUSE RN: No Patient History Past Medical History: see triage record Past Surgical History: none Pertinent Family History: none Now: No Reviewed Nursing Documentation: PMH: Agreed; PSxH: Agreed Nursing Documentation-PMH Past Medical History: No History, Except For Hx Cardiac Problems: Yes - DVT on left leg Hx Hypertension: Yes Hx Cancer: No Hx Gastrointestinal Problems: No Hx Neurological Problems: No Review of Systems All Other Systems: negative except mentioned in HPI Physical Exam Vital Signs Date Time Temp Pulse Resp B/P (MAP) Pulse Ox O2 Delivery O2 Flow Rate FiO2 05/05/20 15:31 98.6 76 18 113/59 (77) 96 Room Air Sp02 EP Interpretation: reviewed, normal General Appearance: no apparent distress, alert, GCS 15, non-toxic Head: normocephalic, atraumatic Eyes: bilateral eye normal inspection, bilateral eye PERRL ENT: hearing grossly normal, normal voice Neck: full range of motion Respiratory: chest non-tender, lungs clear, normal breath sounds, no respiratory distress, no accessory muscle use, no wheezing, speaking full sentences Cardiovascular #1: regular rate, rhythm, normal capillary refill, edema - 2+ non pitting edema to the bilateral calfs. Cardiovascular #2: 2+ dorsalis pedis (R), 2+ dorsalis pedis (L) Gastrointestinal: non tender, soft Musculoskeletal: normal range of motion, gait/station normal, non-tender, swelling - Swelling without tenderness to the Bilateral Calfs. , no erythema or warmth. Neurologic: alert, motor strength/tone normal, oriented x3, sensory intact, responsive, speech normal Psychiatric: judgement/insight normal Skin: other - no erythema or increased warmth on palpation. Darker discoloration to the LE's distally. good cap refills. Skin noted to be dry/ flaky Lymphatic: no adenopathy Medical Decision Making PA Attestation Dr. Dubon Is my supervising Physician whom patient management has been discussed with. Diagnostic Impression: Primary Impression: Edema of both lower extremities ER Course 74 YO w. hx of Left DVT dx 1 week ago, on Eliquis. worsening of LLE swelling, and new onset swelling of the RLE. Pt. also has hx of rectal cancer. She was at follow up today and oncologist referred pt. to ED for DVT eval. Pt. denies pain or tenderness. Pt. denies CP, palpitations or SOB. PT. reports hx of HTN as well. Denies cardiac hx. (Meds do however include diltiazem). PT denies erythema Ddx considered but are not limited to Cellulitis, DVT, varicose vein, PAD, Venous insufficiency, lymphedema, CHF just to name a few. Vital signs: are WNL, pt. is afebrile H&PE are most consistent with need to r/o dvt vs. possible CHF. ORDERS: -CBC with Diff,: WBC's 2.8 Pt. seeing oncologist had radiation earlier this year. -CMP: unremarkable -BNP : 256 not appreciably elevated PT/PTT: Therapeutic LE duplex U/s Left and Right to R/O dvt.: negative ED INTERVENTIONS: None required at this time. --Extensive discussion with pt. regarding close outpatient follow up. keeping extremities elevated. Will try compression stockings. Pt. also given a copy of her labs to take with her to her follow up appt. Pt. will continue taking her previously prescribed medications as directed. Strict ED return precautions given. -I do not identify an emergent condition at this time. With current presentation , pt. is stable for close outpatient follow up and conservative treatment. D/ w pt. to return promptly to ED with worsening or new symptoms.- Pt. verbalizes' understanding and agreement with proposed treatment plan. DISCHARGE: At this time pt. is stable for d/c to home. Will provide printed patient care instructions, and any necessary prescriptions. Care plan and follow up instructions have been discussed with the patient prior to discharge. Labs Test 05/05/20 16:04 White Blood Count 2.8 K/UL (4.8-10.8) Red Blood Count 3.23 M/UL (4.20-5.40) Hemoglobin 9.1 G/DL (12.0-16.0) Hematocrit 28.9 % (37.0-47.0) Mean Corpuscular Volume 89 FL (80-99) Mean Corpuscular Hemoglobin 28.0 PG (27.0-31.0) Mean Corpuscular Hemoglobin Concent 31.3 G/DL (32.0-36.0) Red Cell Distribution Width 13.6 % (11.6-14.8) Platelet Count 230 K/UL (150-450) Mean Platelet Volume 5.7 FL (6.5-10.1) Neutrophils (%) (Auto) 55.1 % (45.0-75.0) Lymphocytes (%) (Auto) 32.8 % (20.0-45.0) Monocytes (%) (Auto) 9.4 % (1.0-10.0) Eosinophils (%) (Auto) 1.3 % (0.0-3.0) Basophils (%) (Auto) 1.4 % (0.0-2.0) Prothrombin Time 11.9 SEC (9.30-11.50) Prothromb Time International Ratio 1.1 (0.9-1.1) Activated Partial Thromboplast Time 34 SEC (23-33) Sodium Level 141 MMOL/L (136-145) Potassium Level 4.4 MMOL/L (3.5-5.1) Chloride Level 103 MMOL/L (98-107) Carbon Dioxide Level 31 MMOL/L (21-32) Anion Gap 7 mmol/L (5-15) Blood Urea Nitrogen 28 mg/dL (7-18) Creatinine 1.0 MG/DL (0.55-1.30) Estimat Glomerular Filtration Rate > 60 mL/min (>60) Glucose Level 96 MG/DL (74-106) Calcium Level 9.0 MG/DL (8.5-10.1) Total Bilirubin 0.2 MG/DL (0.2-1.0) Aspartate Amino Transf (AST/SGOT) 21 U/L (15-37) Alanine Aminotransferase (ALT/SGPT) 21 U/L (12-78) Alkaline Phosphatase 61 U/L (46-116) Pro-B-Type Natriuretic Peptide 265 pg/mL (0-125) Total Protein 7.2 G/DL (6.4-8.2) Albumin 3.5 G/DL (3.4-5.0) Globulin 3.7 g/dL Albumin/Globulin Ratio 0.9 (1.0-2.7) Chest X-Ray Diagnostic Results Chest X-Ray Diagnostic Results : Chest X-Ray Ordered: Yes # of Views/Limited/Complete: 1 View Indication: Other - peripheral edema EP Interpretation: Yes MADYSON Xray: Interpretation reviewed, by supervising MD, and agrees with findings. Interpretation: no consolidation, no effusion, no pneumothorax, no acute cardiopulmonary disease Impression: No acute disease Electronically Signed by: Annie Díaz PA-C CT/MRI/US Diagnostic Results CT/MRI/US Diagnostic Results #1: Imaging Test Ordered: Venous Duplex US Left Lower Extremity Impression " Negative for DVT" --per official radiology report- Please see report for specific details. CT/MRI/US Diagnostic Results #2: Imaging Test Ordered: Venous Duplex US Right Lower Extremity Impression "Negative for DVT" --per official radiology report- Please see report for specific details. Last Vital Signs Date Time Temp Pulse Resp B/P (MAP) Pulse Ox O2 Delivery O2 Flow Rate FiO2 05/05/20 15:47 76 18 Room Air 05/05/20 15:31 98.6 113/59 (77) 96 Disposition: HOME, SELF-CARE Condition: Stable Scripts Compression Socks, Medium (FUTURO RESTORING) 1 Each Each EACH PRN for lower leg swelling, #1 Prov: Annie Díaz 05/05/20 Patient Instructions: Edema, Peripheral Edema Additional Instructions: Take medications as directed. Keep legs elevated whenever possible. Follow up with your Primary Care Provider within 3-5 days, even if your symptoms have resolved. Please notify your PCP office promptly that you were seen in the ED The Ultra Sound of both legs did not show DVT's ( Blood clots). You also had a normal chest X-ray and labs. Attached will be a copy of your lab results to take with you to your doctors visit. Return sooner to ED if new symptoms occur, or current symptoms become worse. - Please note that this Emergency Department Report was dictated using [employer] program officer technology software, occasionally this can lead to erroneous entry secondary to interpretation by the dictation equipment. Annie Díaz May 05, 2020 15:53
[2020-05-05 15:58] VITALS: BP 113/59
[2020-05-05 16:35] LABS: HEMATOCRIT 28.9 % (37.0-47.0); HEMOGLOBIN 9.1 G/DL (12.0-16.0); MEAN CORPUSCULAR VOLUME 89 FL (80-99); PLATELET COUNT 230 K/UL (150-450); RED BLOOD COUNT 3.23 M/UL (4.20-5.40); RED CELL DISTRIBUTION WIDTH 13.6 % (11.6-14.8); WHITE BLOOD COUNT 2.8 K/UL (4.8-10.8)
[2020-05-05 16:39] LABS: INR 1.1 (0.9-1.1)
[2020-05-05 16:40] LABS: ANION GAP 7 mmol/L (5-15); BASOPHILS % (AUTO) 1.4 % (0.0-2.0); BLOOD UREA NITROGEN 28 mg/dL (7-18); CARBON DIOXIDE 31 MMOL/L (21-32); CHLORIDE 103 MMOL/L (98-107); EOSINOPHILS % (AUTO) 1.3 % (0.0-3.0); LYMPHOCYTES % (AUTO) 32.8 % (20.0-45.0); MONOCYTES % (AUTO) 9.4 % (1.0-10.0); NEUTROPHILS % (AUTO) 55.1 % (45.0-75.0); POTASSIUM 4.4 MMOL/L (3.5-5.1); SODIUM 141 MMOL/L (136-145)
[2020-05-05 16:50] LABS: ALANINE AMINOTRANSFERASE 21 U/L (12-78); ALBUMIN 3.5 G/DL (3.4-5.0); ALBUMIN/GLOBULIN RATIO 0.9 (1.0-2.7); ALKALINE PHOSPHATASE 61 U/L (46-116); ASPARTATE AMINO TRANSFERASE 21 U/L (15-37); BILIRUBIN,TOTAL 0.2 MG/DL (0.2-1.0)
--- NOTE | 2020-05-05 17:02 | Diagnostic Imaging Report ---
EXAM: XR Chest, 1 View CLINICAL HISTORY: PAIN TECHNIQUE: Frontal view of the chest. COMPARISON: 12/19/2019 FINDINGS: Lungs: Unremarkable. No consolidation. Pleural space: No pleural effusion. No pneumothorax. Heart: Unremarkable. No cardiomegaly. Bones/joints: Unremarkable. IMPRESSION: No acute cardiopulmonary abnormality.
--- NOTE | 2020-05-05 17:05 | Diagnostic Imaging Report ---
EXAM: US Duplex Left Lower Extremity Veins CLINICAL HISTORY: PAIN TECHNIQUE: Real-time duplex ultrasound scan of the left lower extremity veins integrating B-mode two-dimensional vascular structure, Doppler spectral analysis, color flow Doppler imaging and compression. COMPARISON: 12/19/2019. FINDINGS: Deep veins: Unremarkable. No DVT in the visualized common femoral, femoral, proximal deep femoral or popliteal veins. The veins demonstrate normal color flow, are normally compressible, with normal phasic flow and/or augmentation response. Superficial veins: Unremarkable. Soft tissues: No acute findings. IMPRESSION: No DVT within the left lower extremity.
[2020-05-05] MEDS ORDERED: FUTURO RESTORI1 EACH MC (17:28)
[2020-05-05 17:39] VITALS: BP 113/59
--- NOTE | 2020-05-10 13:46 | Diagnostic Imaging Report ---
EXAM: ULTRASOUND Venous Duplex Lower Ext Uni CLINICAL HISTORY: Leg pain and edema. COMPARISON: None TECHNIQUE: Doppler examination include grayscale images obtained with and without compression, and color and spectral doppler analysis. FINDINGS: Doppler examination shows normal spontaneity, phasicity, compressibility in the right lower extremity. There is no thrombus identified by grayscale. Normal color and spectral flow is identified. There is no evidence of valvular incompetency or insufficiency. IMPRESSION: UNREMARKABLE VENOUS DUPLEX.
== END 2020-05-05 17:52 | disposition home or self-care (01) ==
LOC: EMR 16:07
DX: R60.0 Localized edema (principal); Z86.718 Personal history of other venous thrombosis and embolism; Z79.01 Long term (current) use of anticoagulants; Z85.048 Personal history of other malignant neoplasm of rectum, rectosigmoid junction, and anus; I10 Essential (primary) hypertension
CPT/HCPCS: 36415; 71045; 80053; 83880; 85025; 85610; 85730; 93971; 99284

== ENCOUNTER 2020-06-11 13:14 | Outpatient (CLI) | payer OTHER ==
[~2020-06-11 13:14] MED LIST changes: +FUTURO RESTORI1 EACH MC
--- NOTE | 2020-06-11 16:45 | Consultation ---
DATE OF CONSULTATION: 06/11/2020 CONSULTING PHYSICIAN: Phil Molina MD. CHIEF COMPLAINT: Referral for colonoscopy by oncologist. PAST MEDICAL HISTORY: 1. DVT. 2. History of pulmonary nodule. 3. Thyroid nodule. 4. Anal surgery for anal cancer. 5. Sciatica. 6. History of colonic polyps. ALLERGIES: No known drug allergies. PAST SURGICAL HISTORY: None. MEDICATIONS: Please see medication reconciliation list. FAMILY HISTORY: No family history of GI malignancies. SOCIAL HISTORY: Patient denies any alcohol or drug abuse. REVIEW OF SYSTEMS: A 10-point review of systems was performed and pertinent positives in HPI. PHYSICAL EXAMINATION: VITAL SIGNS: Temperature 98.7, blood pressure is 120/60, pulse is 70, respirations 20. HEENT: Normocephalic and atraumatic. Sclerae anicteric. NECK: Supple. No evidence of obvious lymphadenopathy. CARDIOVASCULAR: Regular rate and rhythm. Plus S1-S2. LUNGS: Clear to auscultation bilaterally. ABDOMEN: Positive bowel sounds. Soft and nontender. No rebound. No guarding. No peritoneal sign. EXTREMITIES: No cyanosis. No clubbing. No edema. ASSESSMENT AND PLAN: This is a 74-year-old female with history of anal cancer, history of anemia was referred by the oncologist for evaluation of repeat colonoscopy for anal cancer. Patient was given the risks and benefits of procedure. The prep was explained to her. She will be scheduled when authorization is obtained. Phil Molina M.D. DR: DEMAR JOB#: [id number] CC:
[2020-06-12] MEDS ORDERED: METHOCARBAMOL500 M1 PO (13:59)
[2020-06-12 14:00] VITALS: BP 120/60
== END 2020-06-11 15:14 | disposition home or self-care (01) ==
LOC: PAN 13:14
DX: Z04.89 Encounter for examination and observation for other specified reasons (principal); Z86.718 Personal history of other venous thrombosis and embolism; Z86.711 Personal history of pulmonary embolism; Z86.010 Personal history of colon polyps; Z85.038 Personal history of other malignant neoplasm of large intestine
CPT/HCPCS: G0463

== ENCOUNTER → 2020-10-11 | Outpatient (CLI) | payer OTHER ==
[~2020-10-11] MED LIST changes: +METHOCARBAMOL500 M1 PO
[2020-10-11 15:02] VITALS: BP 151/78
--- NOTE | 2020-10-16 08:06 | General Progress Note ---
Subjective ROS Limited/Unobtainable: Yes Allergies: Coded Allergies: No Known Allergies (Unverified , 02/23/19) Objective General Appearance: alert EENT: normal ENT inspection Neck: supple Cardiovascular: normal rate Respiratory/Chest: lungs clear Abdomen: normal bowel sounds, non tender, soft Extremities: non-tender Assessment/Plan Assessment/Plan: 1. DVT. 2. History of pulmonary nodule. 3. Thyroid nodule. 4. Anal surgery for anal cancer. 5. Sciatica. 6. History of colonic polyps. s/p colonoscopy one polyp small anal lesion but pathology has been lost! needs oncology recs regarding need for repeat possible Flex sig Phil Molina MD Oct 16, 2020 08:06
== END | disposition home or self-care (01) ==
LOC: PAN 14:33
DX: K63.5 Polyp of colon (principal); I82.409 Acute embolism and thrombosis of unspecified deep veins of unspecified lower extremity; E04.1 Nontoxic single thyroid nodule; Z85.048 Personal history of other malignant neoplasm of rectum, rectosigmoid junction, and anus; M54.30 Sciatica, unspecified side
CPT/HCPCS: 99212